=== PATIENT | female | born 1960 | race Caucasian/White ===

== ENCOUNTER 2022-12-12 11:02 | Emergency (ER) | payer MEDICAID, SELFPAY ==
[2022-12-12 11:57] VITALS: BP 103/61; PULSE 68; RESP 16; TEMP 36.6; O2SAT 99
--- NOTE | 2022-12-12 13:04 | ED.DENTAL ---
HPI - Dental/Oral General Chief complaint: Dental/Oral Stated complaint: left side facial swelling Source: patient and family (daughter ) Mode of arrival: ambulatory Limitations: no limitations History of Present Illness HPI Narrative: 62-year-old female presents to [facility] complaints are swelling and pain to her left facial cheek For the past 2 days. Patient reports that she has dentures. Reports that she has had cold-like symptoms for the past week. Denies fever, body aches, chills, nausea, vomiting or diarrhea. Onset (ago): day(s) (2) Relieving factors: nothing Exacerbating factors: chewing Related Data Allergies Allergy/AdvReac Type Severity Reaction Status Date / Time No Known Allergies Allergy Verified 12/12/22 12:02 Review of Systems Constitutional: Constitutional: Denies chills, Denies fatigue, Denies fever(s) and Denies weakness ENT: Denies vertigo and Denies dizziness Comments: pain and swelling to left facial cheek Respiratory: Respiratory: Denies chest congestion and Denies cough Gastrointestinal: Gastrointestinal: Denies diarrhea, Denies nausea and Denies vomiting Integumentary/Breasts: Skin/Breast: Denies pruritus, Denies erythema and Denies rash PMFSH Comments At time of signature, I agree with nursing past medical, surgical, social and family history. There is no relevant family history pertinent to the presenting complaint. Exam Const: General: healthy appearing and no acute distress Nutritional Appearance: well nourished Orientation/consciousness: patient oriented x3 Limitations: no limitations and No altered mental status HENMT: Throat: posterior oropharynx normal and uvula midline Other: dentures noted; white discoloration noted to gums and dentures. Eyes: Conjunctivae: conjunctivae normal Neck: Neck: normal visual inspection Resp: Effort & Inspection: normal respiratory effort and not labored Auscultation: clear to auscultation bilaterally, no crackles, no rales and no rhonchi Cardio: Rate: regular rate Rhythm: regular rhythm Heart sounds: no murmurs Skin: Rashes: no rashes Wounds: no wounds Neuro: General: patient oriented x3 Psych: Affect: normal affect Attitude: cooperative Course Course Level of Care: Express Care Visit Vital Signs Vital signs: Vital Signs Temperature 36.6 C 12/12/22 11:57 Pulse Rate 68 12/12/22 11:57 Respiratory Rate 16 12/12/22 11:57 Blood Pressure 103/61 12/12/22 11:57 Pulse Oximetry 99 12/12/22 11:57 Oxygen Delivery Room Air 12/12/22 11:57 Temperature 36.6 C 12/12/22 11:57 Pulse Rate 68 12/12/22 11:57 Respiratory Rate 16 12/12/22 11:57 Blood Pressure 103/61 12/12/22 11:57 Pulse Oximetry 99 12/12/22 11:57 Oxygen Delivery Room Air 12/12/22 11:57 MDM - Dental/Oral MDM Narrative Medical decision making narrative: instructed patient to follow-up with primary care provider or dentist to follow up in symptoms. Instructed patient to proceed to the emergency room if symptoms worsen Differential Diagnosis Differential diagnosis: Likely gingival abscess, dental caries and aphthous ulcer Critical Care Time Critical Care Time Critical Care Time: No Discharge Plan Discharge Clinical Impression: Left facial swelling Patient Disposition: Home, Self-Care Condition: Stable Instructions: Antibiotic Form Additional Instructions: warm saltwater gargles as needed [id number] Tylenol as needed Follow-up with dentist or primary care provider if symptoms do not improve Proceed to the emergency room if symptoms worsen Patient Language: German Prescriptions: New amoxicillin-pot clavulanate 875-125 mg tablet 1 tablet PO Q12H 10 Days Qty: 20 0RF Follow-up/Referrals: UNKNOWN,DOCTOR [Primary Care Provider] - Stand Alone Forms: Work/School Release IP Time of Disposition: 13:13
== END 2022-12-12 13:17 | disposition home or self-care (01) ==
PROVIDERS: Emergency Provider Nurse Practitioner Family
DX: R22.0 Localized swelling, mass and lump, head (principal); Z86.73 Personal history of transient ischemic attack (TIA), and cerebral infarction without residual deficits
CPT/HCPCS: 99203; G0463